=== PATIENT | male | born 1945 | race Caucasian/White ===

== ENCOUNTER 2017-07-13 04:09 | Day surgery (SDC) | payer MEDICARE, OTHER ==
[~2017-07-13] VITALS: Ht 170.8 cm; Wt 64.4 kg
[~2017-07-13 04:09] MED LIST: CHOL100059 PO; GLUC-125 PO; LEVO50 PO; LEVO88TA45 PO; OMEG1CAP35 PO; RANI-324 PO
[2017-07-13] MEDS ORDERED: LIDOCAINE MPF 1% 5 ML VIAL ONE (07:03)
[2017-07-13] MEDS ORDERED: PROPOFOL EMUL(*) 10MG/ML 20 ML 60 ML ONE (07:03)
[2017-07-13] MEDS ORDERED: LIDOCAINE/SOD BICARB 8.4% SYR ID ONE (12:05)
[2017-07-13] MEDS ORDERED: NORMOSOL R SOLN(*) 1000 ML BAG 1,000 ML IV PRN (12:05)
[2017-07-13 12:33] VITALS: BP 155/87
[2017-07-13] MEDS ORDERED: GLYCOPYRROLATE 1 MG/5 ML INJ ONE (12:49)
[2017-07-13 12:55] VITALS: BP 101/66
[2017-07-13 13:31] VITALS: BP 118/77
[2017-07-13 13:50] VITALS: BP 118/97
[2017-07-13 13:52] VITALS: BP 99/78
== END 2017-07-13 14:25 | disposition home or self-care (01) ==
LOC: OR 04:09
PROVIDERS: ATTEND Family Medicine
DX: Z12.11 Encounter for screening for malignant neoplasm of colon (principal); K57.30 Diverticulosis of large intestine without perforation or abscess without bleeding; Z86.010 Personal history of colon polyps
CPT/HCPCS: 00812; G0121; J2001; J2704; J3490

== ENCOUNTER 2017-10-22 07:07 | Emergency (ER) | payer MEDICARE, OTHER ==
[~2017-10-22 07:07] MED LIST changes: -RANI-324 PO; +RANI-366 PO
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
[2017-10-22 07:14] VITALS: BP 149/87
== END 2017-10-22 07:33 | disposition home or self-care (01) ==
LOC: ER 07:14
DX: S51.811A Laceration without foreign body of right forearm, initial encounter (principal)
CPT/HCPCS: 99281